=== PATIENT | female | born 1960 | race Caucasian/White ===

== ENCOUNTER 2017-01-10 22:31 | Emergency (ER) | payer MEDICAID, OTHER ==
[~2017-01-10] VITALS: Ht 132.1 cm; Wt 73.0 kg
[2017-01-10 22:43] VITALS: Ht 132.1 cm; Wt 73.0 kg
[2017-01-10] MEDS ORDERED: ERGO500037 PO (23:36)
[2017-01-10] MEDS ORDERED: METO-407 PO (23:36)
[2017-01-10] MEDS ORDERED: HYD25 PO (23:36)
[2017-01-10] MEDS ORDERED: BENA10TA48 PO (23:37)
[2017-01-10] MEDS ORDERED: ALEN70TA30 PO (23:37)
[2017-01-11] MEDS ORDERED: NICARDipine HCL 30 MG CAPSULE PO ONE
[2017-01-11] MEDS ORDERED: PILOCARPINE 5 MG TAB PO SCH
[2017-01-11] MEDS ORDERED: PILO7.5T2 PO (00:34)
[2017-01-11] MEDS ORDERED: DILT240C79 PO (00:34)
[2017-01-11] MEDS ORDERED: OLME40TA14 PO (00:34)
--- NOTE | 2017-01-11 00:40 | ERD ---
ER Documentation Chief Complaint Date/Time DATE: 01/11/17 TIME: 00:35 Chief Complaint trouble swallowing x 1 week, no ST, no cough, no congestion HPI This a 56-year-old female complains of 8 days of dry mouth. The patient states her mouth is constantly dry and she has to sip water otherwise she has a really hard time swallowing her saliva. The patient says she has no problems swallowing liquids or eating food. There is no odynophagia or dysphagia or pain with swallowing in the chest or neck area. The patient is on benazepril, labetalol and hydrochlorothiazide. She has no decrease in urine output no dry eyes no conjunctivitis ROS All systems reviewed and are negative except as per history of present illness. Medications Home Meds Active Scripts Diltiazem Hcl* (Cardizem CD*) 240 Mg Cap.sr.24h, 240 MG PO DAILY, #30 CAP Prov:ANDREA MEDLEYSTOLOS A. DO 01/11/17 Olmesartan Medoxomil (Benicar) 40 Mg Tablet, 40 MG PO DAILY, #30 TAB Prov:KANDICE MEDLEY A. DO 01/11/17 Pilocarpine Hcl* (Salagen*) 7.5 Mg Tablet, 7.5 MG PO TID for DRY MOUTH, #30 TAB Prov:KANDICE MEDLEY A. DO 01/11/17 Reported Medications Alendronate Sodium* (Fosamax*) 70 Mg Tablet, 70 MG PO Q7D, #4 TAB 01/10/17 Benazepril Hcl* (Benazepril Hcl*) 10 Mg Tablet, 10 MG PO DAILY, #30 TAB 01/10/17 Hydrochlorothiazide* (Hydrochlorothiazide*) 25 Mg Tab, 25 MG PO DAILY, #30 TAB 01/10/17 Metoprolol Tartrate* (Lopressor*) 100 Mg Tablet, 100 MG PO BID, #60 TAB 01/10/17 Ergocalciferol (Vitamin D2) (VITAMIN D2) 50,000 Unit Capsule, 82637 UNIT PO Q7D , CAP 01/10/17 Allergies Allergies: Coded Allergies: No Known Allergy (Unverified , 01/10/17) PMhx/Soc History of Surgery: Yes (gall bladder) Anesthesia Reaction: No Hx Neurological Disorder: No Hx Respiratory Disorders: No Hx Cardiac Disorders: Yes (htn) Hx Psychiatric Problems: No Hx Miscellaneous Medical Probl: Yes (gallstone removal, ) Hx Alcohol Use: No Hx Substance Use: No Hx Tobacco Use: No Smoking Status: Never smoker FmHx Family History: No coronary disease Physical Exam Vitals Vital Signs Date Time Temp Pulse Resp B/P Pulse Ox O2 Delivery O2 Flow Rate FiO2 01/11/17 00:28 80 20 137/107 Room Air 01/10/17 22:43 97.2 75 16 192/93 100 Physical Exam Const: Well-developed, well-nourished Head: Atraumatic, normocephalic Eyes: Normal Conjunctiva, PERRLA, EOMI, normal sclera, no nystagmus ENT: Normal External Ears, Nose and Mouth, slightly dry mucus membranes , severe plaque buildup. Neck: Full range of motion. No meningismus, no lymphadenopathy. Resp: Clear to auscultation bilaterally, no wheezing, rhonchi, rales Cardio: Regular rate and rhythm, no murmurs, S1 S2 present Abd: Soft, non tender x 4, non distended. Normal bowel sounds, no guarding or rebound, no pulsitile abdominal masses or bruits Skin: No petechiae or rashes, no ecchymosis , no maculopapular rash Back: No midline or flank tenderness Ext: No cyanosis, or edema, FROM x 4, normal inspection, neurovascularly intact x 4 Neur: Awake and alert, STR 5/5 x 4, sensation intact x 4, no focal findings, cerebellum intact Psych: Normal Mood and Affect Results 24 hrs Current Medications Medications (Trade) Dose Ordered Sig/Jenelle Route PRN Reason Start Time Stop Time Status Last Admin Dose Admin Nicardipine HCl (Cardene) 30 mg ONCE ONCE PO 01/11/17 00:00 01/11/17 00:01 01/11/17 00:26 Pilocarpine (Salagen) 10 mg NOW PO 01/11/17 00:00 01/11/17 00:33 Procedures/MDM The patient is taking 3 medications that can cause dry mouth as mentioned in the HPI. Benzapril specifically is directly associated with xerostomia. Discussed with the daughter that she needs to see ENT for autoimmune disease for Sjogren's workup, she also has lots of plaque buildup which could be the cause. She does not appear grossly dehydrated she has been sipping on water constantly for the past 8 days and do not feel she is dehydrated. We will change her blood pressure medication to Benicar and Cardizem and provide her with Salagen to increased secretions Departure Diagnosis: Primary Impression: Xerostomia Condition: Stable Patient Instructions: High Blood Pressure (Hypertension) Referrals: DAWN GARCIA Additional Instructions: stop Benzapril and hydrochlorothiazide KANDICE MEDLEY DO Jan 11, 2017 00:40
[2017-01-11 00:58] VITALS: BP 137/99; PULSE 60; RESP 18
== END 2017-01-11 01:11 | disposition home or self-care (01) ==
LOC: E/R 22:31
DX: K11.7 Disturbances of salivary secretion (principal); I10 Essential (primary) hypertension
CPT/HCPCS: Z7502; Z7610; 99284

== ENCOUNTER 2018-02-06 08:12 | Emergency (ER) | END 2018-02-06 15:38 | disposition home or self-care (01) ==